=== PATIENT | female | born 1945 | race Caucasian/White ===

== ENCOUNTER 2018-07-20 12:17 | Outpatient (CLI) | payer MEDICARE ==
--- NOTE | 2018-07-20 13:31 | MRI ---
MR of the right shoulder without contrast INDICATION: Right shoulder pain. History of fall concern for rotator cuff tear TECHNIQUE: Sagittal T1, axial and coronal PD fat sat, sagittal and coronal T2 fat sat images were obt ained of the right shoulder. COMPARISON: None FINDINGS: Rotator cuff: There is a partial-thickness articular surface tear involving the mid to posterior supr aspinatus measuring 0.3 x 0.9 cm. The tear involves up to 50% of the tendon thickness at the footprint. There is moderate tendinosis of the supraspinatus. No muscular atrophy is evident. No full -thickness tear is evident. Glenohumeral joint: Articular cartilage is intact. Glenoid labrum: Intact Biceps tendon and biceps anchor: Intact and located. Acromion clavicular joint: There is mild AC joint osteoarthrosis. Subacromial subdeltoid space: No appreciable fluid. Axillary region: No lymphadenopathy. Surrounding shoulder musculature: Normal. No evidence of atrophy or strain. IMPRESSION: 1. Partial thickness articular surface tear of the mid to posterior supraspinatus at the footprint in volving approximately 50% of the tendon thickness. 2. Moderate supraspinatus tendinosis 3. Mild AC joint osteoarthrosis.
== END 2018-07-20 12:18 | disposition home or self-care (01) ==
LOC: BICMRI 12:17
PROVIDERS: ATTEND Family Medicine
DX: S46.001A Unspecified injury of muscle(s) and tendon(s) of the rotator cuff of right shoulder, initial encounter (principal); M25.511 Pain in right shoulder; G89.29 Other chronic pain; S46.911A Strain of unspecified muscle, fascia and tendon at shoulder and upper arm level, right arm, initial encounter; M75.91 Shoulder lesion, unspecified, right shoulder; M19.011 Primary osteoarthritis, right shoulder
CPT/HCPCS: 77063; 77067

== ENCOUNTER 2022-06-28 14:12 | Outpatient (CLI) | payer OTHER, MEDICAID | END 2022-06-28 14:13 | disposition home or self-care (01) | LOC: TBSIIMAG 14:12 | PROVIDERS: ATTEND Neurological Surgery | DX: M47.26 Other spondylosis with radiculopathy, lumbar region (principal); Z98.1 Arthrodesis status | CPT/HCPCS: 72100 ==

== ENCOUNTER 2022-08-09 12:00 | Outpatient (CLI) | payer OTHER, MEDICAID | END 2022-08-09 12:01 | disposition home or self-care (01) | LOC: SCSMRI 12:00 | PROVIDERS: ATTEND Neurological Surgery | DX: M47.26 Other spondylosis with radiculopathy, lumbar region (principal); M47.812 Spondylosis without myelopathy or radiculopathy, cervical region; R26.89 Other abnormalities of gait and mobility; Z98.890 Other specified postprocedural states | CPT/HCPCS: 72141; 72148 ==

== ENCOUNTER 2022-09-28 12:58 | Outpatient (CLI) | payer OTHER, MEDICAID | END 2022-09-28 12:59 | disposition home or self-care (01) | LOC: BICCT 12:58 | PROVIDERS: ATTEND Neurological Surgery | DX: M48.062 Spinal stenosis, lumbar region with neurogenic claudication (principal); Z98.890 Other specified postprocedural states | CPT/HCPCS: 72131 ==

== ENCOUNTER 2022-12-13 11:22 | Outpatient (CLI) | payer OTHER, MEDICAID ==
[2022-12-13 12:34] LABS: #Eosinphils 0.2 10x3/uL (0.0-0.5); #Monocytes 0.6 10x3/uL (0.0-1.1); #Neutrophils 3.4 10x3/uL (1.5-8.4); %Basophils 0.7 % (0.0-2.0); %Eosinophils 3.8 % (0.0-6.0); %Lymphocytes 29.3 % (18.0-47.0); %Monocytes 9.3 % (0.0-10.0); %Neutrophils 56.6 % (40.0-75.0); Hematocrit 38.2 % (34.9-44.5); Hemoglobin 12.2 g/dL (12.0-15.5); Mean Corpuscular HGB CONC 31.9 g/dL (32.0-36.0); Mean Corpuscular Hemoglobin 30.2 pg (27.0-33.0); Mean Corpuscular Volume 94.6 fl (81.6-98.3); Mean Platelet Volume 10.7 fl (7.4-10.4); Platelet Count 279 10x3/uL (150-450); RBC Distribution Width 14.2 % (11.5-14.5); Red Blood Cell (RBC) Count 4.04 10x6/uL (3.90-5.03)
[2022-12-13 13:15] LABS: ALT (SGPT) 14 U/L (8-55); AST (SGOT) 33 U/L (5-34); Alkaline Phosphatase 250 U/L (40-110); Anion Gap 13 mmol/L (10-20); BUN (Urea Nitrogen) 12 mg/dL (9.8-20.1); Bilirubin, Direct 0.2 mg/dL (0.1-0.3); Bilirubin, Total 0.3 mg/dL (0.2-1.2); Calc. Creatinine Clearance 0 mL/min (70-130); Calcium 10.2 mg/dL (7.8-10.44); Carbon Dioxide 25 mmol/L (23-31); Chloride 107 mmol/L (98-107); Estimated GFR 82; Glucose 159 mg/dL (83-110); Potassium 4.4 mmol/L (3.5-5.1); Protein, Total 6.9 g/dL (5.8-8.1); Sodium 141 mmol/L (136-145)
== END 2022-12-13 11:23 | disposition home or self-care (01) ==
LOC: LABBT 11:22
PROVIDERS: ATTEND Internal Medicine Gastroenterology
DX: Z01.812 Encounter for preprocedural laboratory examination (principal); K80.20 Calculus of gallbladder without cholecystitis without obstruction
CPT/HCPCS: 80048; 80076; 85025

== ENCOUNTER 2022-12-20 09:39 | Inpatient (IN) | payer OTHER, MEDICAID ==
[2022-12-13 11:56] VITALS: BMI 26.5
[2022-12-20] MEDS ORDERED: Vasopressin 20 UNITS/ML VIAL ONE (12:45)
[2022-12-20] MEDS ORDERED: Indomethacin 50 MG SUPP ONE (13:01)
[2022-12-20] MEDS ORDERED: Iopamidol 0 ML ONE (13:02)
[2022-12-20] MEDS ORDERED: LevoFLOXacin 500 mg/D5W 100 ML BAG ONE (13:52)
[2022-12-20] MEDS ORDERED: fentaNYL PF 100 MCG/2 ML SYRINGE ONE (14:00)
[2022-12-20] MEDS ORDERED: SUGAMMADEX SODIUM 200 MG/2 ML VIAL ONE (14:01)
[2022-12-20] MEDS ORDERED: Bupivacaine 0.25% HCL 30 ML VIAL ONE (14:07)
[2022-12-20] MEDS ORDERED: EPINEPHrine 1 MG/ML AMP ONE (14:07)
[2022-12-20] MEDS ORDERED: Indocyanine Green 25 MG/10 ML VIAL ONE (14:07)
[2022-12-20] MEDS ORDERED: Glycopyrrolate 0.2 MG/ML 5 ML SYRINGE ONE (14:30)
[2022-12-20] MEDS ORDERED: Rocuronium Bromide 10 MG/ML (10ML VIAL) ONE (14:30)
[2022-12-20] MEDS ORDERED: Lidocaine 1% PF 5 ML VIAL ONE (14:30)
[2022-12-20] MEDS ORDERED: Dexamethasone 20 MG/5 ML VIAL ONE (14:30)
[2022-12-20] MEDS ORDERED: ePHEDrine Sulfate 50 MG/10 ML VIAL ONE (14:30)
[2022-12-20] MEDS ORDERED: Ondansetron PF 4 MG/2 ML Vial ONE (14:30)
[2022-12-20] MEDS ORDERED: PROPOFOL 200 MG/20 ML VIAL ONE (14:30)
[2022-12-20] MEDS ORDERED: Iopamidol 30 ML ONE ×2 (14:37→14:40)
[2022-12-20] MEDS ORDERED: Promethazine HCl 25 MG/ML VIAL IM PRN ×2 (15:52→15:57)
[2022-12-20] MEDS ORDERED: Ondansetron HCl/PF 4 MG/2 ML Vial IVP PRN (15:52)
[2022-12-20] MEDS ORDERED: Ondansetron PF 4 MG/2 ML Vial IVP PRN (15:57)
[2022-12-20] MEDS ORDERED: tiZANidine HCl 4 MG TAB PO PRN (15:57)
[2022-12-20] MEDS ORDERED: Dextrose 5% in Water 1,000 ML IV PRN (15:57)
[2022-12-20] MEDS ORDERED: fentaNYL 50 mcg/mL 1 mL Vial ONE ×2 (15:57→16:23)
[2022-12-20] MEDS ORDERED: Calcium Carbonate 500 MG ChewTAB PO PRN (15:57)
[2022-12-20] MEDS ORDERED: Glucagon 1 MG/ML KIT IM PRN (15:57)
[2022-12-20] MEDS ORDERED: Ipratropium/Albuterol 3 ML NEB NEB PRN (15:57)
[2022-12-20] MEDS ORDERED: Acetaminophen 325 MG TAB PO PRN (15:57)
[2022-12-20] MEDS ORDERED: Mag-Al 1200 mg/1200 mg/30 ML UDCUP PO PRN (15:57)
[2022-12-20] MEDS ORDERED: hydrALAZINE 20 MG/ML VIAL SLOW IVP PRN (15:57)
[2022-12-20] MEDS ORDERED: cloNIDine 0.1 MG TAB PO PRN (15:57)
[2022-12-20] MEDS ORDERED: Dextrose 50% Abboject 50 ML SYRINGE SLOW IVP PRN (15:57)
[2022-12-20] MEDS ORDERED: Fentanyl 100 MCG/2 ML VIAL SLOW IVP PRN (15:57)
[2022-12-20] MEDS ORDERED: traMADol HCl 50 MG TAB PO PRN ×2 (15:57)
[2022-12-20] MEDS: Lactated Ringer's 1,000 ML IV SCH (18:02)
[2022-12-20] MEDS ORDERED: Melatonin 3 MG TAB PO SCH (21:00)
[2022-12-20] MEDS ORDERED: Amlodipine 5 MG TAB PO SCH (21:00)
[2022-12-20] MEDS: Famotidine/PF 20 mg/2ml Vial SLOW IVP SCH (21:26)
[2022-12-20] MEDS: Famotidine 20 MG TAB PO SCH (22:34)
[2022-12-20] MEDS: Gabapentin 300 MG CAP PO SCH (22:35)
[2022-12-21] MEDS: Lactated Ringer's 1,000 ML IV SCH (04:00)
[2022-12-21 06:33] LABS: #Monocytes 0.5 thou/uL (0.11-0.59); #Neutrophils 3.5 thou/uL (1.40-6.50); %Basophils 0.2 % (0.0-1.0); %Lymphocytes 19.6 % (21.0-51.0); %Monocytes 10.1 % (0.0-10.0); %Neutrophils 69.7 % (42.0-75.0); Hematocrit 35.4 % (36.0-47.0); Hemoglobin 11.5 g/dL (12.0-16.0); Mean Corpuscular HGB CONC 32.5 g/dL (32.0-36.0); Mean Corpuscular Hemoglobin 29.6 pg (27.0-31.0); Mean Corpuscular Volume 91.2 fl (78.0-98.0); Mean Platelet Volume 10.2 fL (7.4-10.4); Platelet Count 262 10x3/uL (130-400); RBC Distribution Width 13.9 % (11.5-14.5); Red Blood Cell (RBC) Count 3.88 mill/uL (4.20-5.40)
[2022-12-21 07:03] LABS: ALT (SGPT) 24 U/L (8-55); AST (SGOT) 47 U/L (5-34); Albumin 4.2 g/dL (3.4-4.8); Alkaline Phosphatase 212 U/L (40-110); Anion Gap 13 mmol/L (10-20); BUN (Urea Nitrogen) 4 mg/dL (9.8-20.1); Bilirubin, Total 0.3 mg/dL (0.2-1.2); Calc. Creatinine Clearance 75 mL/min (70-130); Calcium 10.7 mg/dL (7.8-10.44); Carbon Dioxide 27 mmol/L (23-31); Chloride 101 mmol/L (98-107); Estimated GFR 91; Globulin 2.8 g/dL (2.4-3.5); Glucose 145 mg/dL (83-110); Potassium 4.4 mmol/L (3.5-5.1); Sodium 137 mmol/L (136-145)
[2022-12-21] MEDS ORDERED: Cholecalciferol 1,000 UNITS (25 MCG) TAB PO SCH (09:00)
[2022-12-21] MEDS ORDERED: Atorvastatin Calcium 10 MG TAB PO SCH (09:00)
[2022-12-21] MEDS ORDERED: Indomethacin 50 MG SUPP ONE (10:27)
[2022-12-21] MEDS ORDERED: Iopamidol 30 ML ONE ×2 (10:34→11:26)
[2022-12-21] MEDS ORDERED: LevoFLOXacin 500 mg/D5W 100 ML BAG ONE (10:39)
[2022-12-21] MEDS ORDERED: fentaNYL 50 mcg/mL 1 mL Vial ONE (10:45)
[2022-12-21] MEDS ORDERED: Lidocaine 1% PF 5 ML VIAL ONE (10:55)
[2022-12-21] MEDS ORDERED: PHENYLEPHRINE-NS 100 MCG/ML 10 ML SYRINGE ONE (10:55)
[2022-12-21] MEDS ORDERED: Glycopyrrolate 0.2 MG/ML 5 ML SYRINGE ONE (10:55)
[2022-12-21] MEDS ORDERED: Ondansetron PF 4 MG/2 ML Vial ONE (10:55)
[2022-12-21] MEDS ORDERED: Rocuronium Bromide 10 MG/ML (10ML VIAL) ONE (10:55)
[2022-12-21] MEDS ORDERED: PROPOFOL 200 MG/20 ML VIAL ONE (10:55)
[2022-12-21] MEDS ORDERED: Succinylcholine 200 MG/10 ml SYRINGE FS ONE (10:55)
[2022-12-21] MEDS ORDERED: Dexamethasone 20 MG/5 ML VIAL ONE (10:55)
[2022-12-21] MEDS ORDERED: diphenhydrAMINE 50 MG/ML VIAL ONE (10:55)
[2022-12-21] MEDS ORDERED: NEOSTIGMINE 3 MG/3 ML SYR 3 MG/3 ML SYRINGE ONE (10:55)
[2022-12-21] MEDS ORDERED: Meperidine HCl/PF 25 MG/ML VIAL SLOW IVP PRN (11:23)
[2022-12-21] MEDS ORDERED: Promethazine HCl 25 MG/ML VIAL IM PRN (11:23)
[2022-12-21] MEDS ORDERED: Ondansetron HCl/PF 4 MG/2 ML Vial IVP PRN (11:23)
[2022-12-21 13:19] VITALS: BP 139/77; TEMP 96.8
[2022-12-21] MEDS: Famotidine 20 MG TAB PO SCH (14:34)
[2022-12-21] MEDS: Gabapentin 300 MG CAP PO SCH (14:36)
[2022-12-21] MEDS: Famotidine/PF 20 mg/2ml Vial SLOW IVP SCH (14:36)
[2022-12-23] MEDS ORDERED: FLU VACC QS2023(65UP)/MF59C/PF 60 MCG/0.5 ML SYRINGE IM ONE (09:00)
== END 2022-12-21 17:39 | disposition home or self-care (01) | DRG 419 ==
LOC: SDC 09:39 → T4-B 15:32
PROVIDERS: ADMIT Surgery; ATTEND Surgery
PROC: 3E033XZ Introduction of Vasopressor into Peripheral Vein, Percutaneous Approach (ICD-10-PCS; principal; 2022-12-20)
PROC: 8E0W4CZ Robotic Assisted Procedure of Trunk Region, Percutaneous Endoscopic Approach (ICD-10-PCS; 2022-12-20)
PROC: 0FT44ZZ Resection of Gallbladder, Percutaneous Endoscopic Approach (ICD-10-PCS; 2022-12-21)
PROC: 0F7C8ZZ Dilation of Ampulla of Vater, Via Natural or Artificial Opening Endoscopic (ICD-10-PCS; 2022-12-21)
PROC: 0F798ZZ Dilation of Common Bile Duct, Via Natural or Artificial Opening Endoscopic (ICD-10-PCS; 2022-12-21)
PROC: 4A1BXSH Monitoring of Gastrointestinal Vascular Perfusion using Indocyanine Green Dye, External Approach (ICD-10-PCS; 2022-12-21)
PROC: BF131ZZ Fluoroscopy of Gallbladder and Bile Ducts using Low Osmolar Contrast (ICD-10-PCS; 2022-12-21)
DX: K80.70 Calculus of gallbladder and bile duct without cholecystitis without obstruction (principal); E11.9 Type 2 diabetes mellitus without complications; E78.2 Mixed hyperlipidemia; E55.9 Vitamin D deficiency, unspecified; F32.A Depression, unspecified; F41.1 Generalized anxiety disorder; K76.0 Fatty (change of) liver, not elsewhere classified; R93.5 Abnormal findings on diagnostic imaging of other abdominal regions, including retroperitoneum; K83.8 Other specified diseases of biliary tract; M19.90 Unspecified osteoarthritis, unspecified site; Z79.899 Other long term (current) drug therapy; Z88.0 Allergy status to penicillin; Z88.2 Allergy status to sulfonamides; Z88.5 Allergy status to narcotic agent; Z98.41 Cataract extraction status, right eye; Z98.42 Cataract extraction status, left eye; Z98.51 Tubal ligation status; Z90.49 Acquired absence of other specified parts of digestive tract; Z90.710 Acquired absence of both cervix and uterus; Z87.891 Personal history of nicotine dependence
CPT/HCPCS: 36415; 74330; 80053; 85025; 88304; C1713; J0171; J1100; J1200; J1956; J2405; J2704; J3010; J7120; Q9967; S0020

== ENCOUNTER 2022-12-28 10:29 | Outpatient (CLI) | payer OTHER, MEDICAID | END 2022-12-28 10:30 | disposition home or self-care (01) | LOC: BICRAD 10:29 | PROVIDERS: ATTEND Neurological Surgery | DX: M43.16 Spondylolisthesis, lumbar region (principal); Z98.890 Other specified postprocedural states | CPT/HCPCS: 36415; 72100; 80053; 80061; 83036; 85025 ==

== ENCOUNTER 2024-03-08 14:44 | Outpatient (CLI) | payer OTHER, MEDICAID | END 2024-03-08 14:45 | disposition home or self-care (01) | LOC: BICMAMMO 14:44 | PROVIDERS: ATTEND Family Medicine | DX: Z12.31 Encounter for screening mammogram for malignant neoplasm of breast (principal); Z78.0 Asymptomatic menopausal state; M85.852 Other specified disorders of bone density and structure, left thigh; M81.0 Age-related osteoporosis without current pathological fracture; Z80.3 Family history of malignant neoplasm of breast | CPT/HCPCS: 77063; 77067; 77080 ==

== ENCOUNTER 2025-02-04 10:05 | Outpatient (CLI) | payer OTHER, MEDICAID | END 2025-02-04 10:06 | disposition home or self-care (01) | LOC: BICMRI 10:05 | PROVIDERS: ATTEND Family Medicine | DX: M43.16 Spondylolisthesis, lumbar region (principal); M48.05 Spinal stenosis, thoracolumbar region; M48.061 Spinal stenosis, lumbar region without neurogenic claudication; Z98.1 Arthrodesis status | CPT/HCPCS: 72148 ==